=== PATIENT | female | born 1955 | race Caucasian/White ===

== ENCOUNTER → 2016-08-13 | Outpatient (CLI) | payer BC | LOC: WI 15:51 | PROVIDERS: ATTEND Obstetrics & Gynecology Gynecology | DX: Z12.31 Encounter for screening mammogram for malignant neoplasm of breast (principal) | CPT/HCPCS: 77067; G0202 ==

== ENCOUNTER 2016-12-28 19:18 | Emergency (ER) | payer BC ==
--- NOTE | 2016-12-28 20:15 | ER Document Report ---
ED Psych Disorder / Suicide - General Mode of Arrival: Ambulatory - with law enforcement Information source: Patient TRAVEL OUTSIDE OF THE [place] IN LAST 30 DAYS: No <XENIA THOMAS - Last Filed: 12/28/16 21:08> <NALDO ERNANDEZ - Last Filed: 12/28/16 22:44> <ALEX DELUNA - Last Filed: 12/29/16 15:51> - General Chief Complaint: Psych Problem Stated Complaint: IVC WITH PAPER Time Seen by Provider: 12/28/16 19:37 Notes: Patient is a 61-year-old female who presents to the emergency department today with complaints of 4 days of not sleeping. Patient came with IVC paperwork which states that she reported having auditory hallucinations and that she is delusional. She reported suicidal thoughts according to the paperwork. Patient is manic with circumferential and tangential speech. Patient repeats over and over that the problem is that "her does not know how to communicate with her". Patient states "I just need sex so that I could get to sleep". (XENIA THOMAS) - HPI Notes: Patient is unable to engage in evaluation effectively. 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 And discloses many facts and figures in regards to politics, presybeterian, and her expertise. Patient is very difficult to understand and does not answer direct questions. Patient's disclosed this is the first time the patient has demonstrated behavior to this degree. He continued disclosed that she has not slept for more than 2 or 3 hours at a time in weeks. Patient has told family that she can care for herself; however, has made concerning comments on killing the family and herself. Patient is observed demanding [facility] ED staff to assist her because they are her "servants" (i.e. move furniture around, cut her food, and bring her clothing and phone). Patient compiled a list of people she wants as her "patient care team" (family and friends) and to be released home "immediately." Patient is alert and orientated to person, place, time and circumstance. Mood is manic with labile affect. Conversational speech is pressured. Delusions of religiosity and grandiose are present; and behavior is congruent with acute psychosis (i.e. tangential thought process, mixed delusions). 298.9 (F29) unspecified psychotic disorder Impression\\plan: Patient is recommended to continue under IVC. Patient is currently demonstrating delusions of religiosity and grandiose and behaviors are congruent with acute psychosis (i.e. tangential thought process, mixed delusions). Dr. Tripp was consulted and the care and management of this patient; attending physician is in agreement with recommendations and disposition. (ALEX DELUNA) Past Medical History - General Information source: Patient - Social History Smoking Status: Never Smoker Cigarette use (# per day): No Frequency of alcohol use: None Drug Abuse: None Lives with: Family Family History: Reviewed & Not Pertinent Patient has suicidal ideation: No Patient has homicidal ideation: No - Medical History Medical History: Negative Surgical Hx: Negative <XENIA THOMAS - Last Filed: 12/28/16 21:08> Review of Systems - Review of Systems Constitutional: No symptoms reported EENT: No symptoms reported Cardiovascular: No symptoms reported Respiratory: No symptoms reported Gastrointestinal: No symptoms reported Genitourinary: No symptoms reported Female Genitourinary: No symptoms reported Musculoskeletal: No symptoms reported Skin: No symptoms reported Hematologic/Lymphatic: No symptoms reported Neurological/Psychological: See HPI, Other - Manic, admits to lack of sleep for several days -: Yes All other systems reviewed and negative <XENIA THOMAS - Last Filed: 12/28/16 21:08> Physical Exam <XENIA THOMAS - Last Filed: 12/28/16 21:08> <NALDO ERNANDEZ - Last Filed: 12/28/16 22:44> <ALEX DELUNA - Last Filed: 12/29/16 15:51> - Vital signs Vitals: Temp Pulse BP Pulse Ox 99.6 F 90 149/83 H 100 12/28/16 19:33 12/28/16 19:33 12/28/16 19:33 12/28/16 19:33 - Notes Notes: Physical Exam: General: Alert. Appears manic. HEENT: Normocephalic. Atraumatic. PERRL. Extraocular movements intact. Oropharynx clear. Neck: Supple. Non-tender. Respiratory: No respiratory distress. Clear and equal breath sounds bilaterally. Cardiovascular: Regular rate and rhythm. Abdominal: Normal Inspection. Non-tender. No distension. Normal Bowel Sounds. Back: Non-tender. No deformity or step off. Extremities: Moves all four extremities. Upper extremities: Normal inspection. Normal ROM. Lower extremities: Normal inspection. No edema. Normal ROM. Neurological: Normal cognition. AAOx4. Psychological: Manic. Circumferential speech. Tangential speech. Pressured speech. Skin: Warm. Dry. Normal color. (XENIA THOMAS) Course <XENIA THOMAS - Last Filed: 12/28/16 21:08> <NALDO ERNANDEZ - Last Filed: 12/28/16 22:44> - Laboratory Result Diagrams: 12/28/16 22:55 12/28/16 22:55 <ALEX DELUNA - Last Filed: 12/29/16 15:51> - Re-evaluation Re-evalutation: 12/28/16 Patient is a 61-year-old female was brought in on involuntary commitment paperwork. Patient apparently destroyed the house at home. Patient also apparently was suicidal and threatening her . Patient has pressured speech, she is tangential and circumferential. Patient appears to be acutely manic. Patient has been given Geodon, Benadryl, and Zyprexa for her symptoms. Patient is finally resting. Otherwise medically stable. She will be continued on involuntary commitment and held for mental health evaluation in the morning. (NALDO ERNANDEZ) - Vital Signs Vital signs: Temp Pulse Resp BP Pulse Ox 97.2 F 70 16 116/68 96 12/29/16 08:00 12/29/16 08:00 12/29/16 08:00 12/29/16 08:00 12/29/16 08:00 - Laboratory Laboratory results interpreted by me: 12/28/16 12/28/16 20:52 22:55 Urine Blood MODERATE H Ur Leukocyte Esterase MODERATE H Salicylates < 1.0 L Acetaminophen < 10 L Discharge <XENIA THOMAS - Last Filed: 12/28/16 21:08> <NALDO ERNANDEZ - Last Filed: 12/28/16 22:44> <ALEX DELUNA - Last Filed: 12/29/16 15:51> - Discharge Clinical Impression: Lilliana Condition: Stable Disposition: PSYCH HOSP/UNIT Scribe Documentation - Scribe Written by Scribe:: Verena Gomez, 12/28/2016 2124 acting as scribe for :: Nikos <XENIA THOMAS - Last Filed: 12/28/16 21:08>
[2016-12-28] MEDS ORDERED: ZIPRASIDONE MESYLATE INJ/PF 20 MG SDV IM ONE (20:26)
[2016-12-28] MEDS ORDERED: DIPHENHYDRAMINE HCL 50 MG/ML VIAL IM ONE (21:45)
[2016-12-28 21:48] LABS: APPEARANCE,URINE SLIGHTLY-CLOUDY; BILIRUBIN,URINE NEGATIVE (NEGATIVE); GLUCOSE, URINE NEGATIVE (NEGATIVE); KETONES,URINE NEGATIVE (NEGATIVE); LEUKOCYTE ESTERASE,URINE MODERATE (NEGATIVE); NITRITE,URINE NEGATIVE (NEGATIVE); PROTEIN,URINE NEGATIVE (NEGATIVE); URINE SPECIFIC GRAVITY 1.003; UROBILINOGEN,URINE NEGATIVE mg/dL (<2.0)
[2016-12-28] MEDS ORDERED: DIPHENHYDRAMINE HCL 50 MG/ML VIAL ONE (21:49)
[2016-12-28] MEDS ORDERED: FLUTICASONE NASAL SPRAY 50 MCG/SPRY 120 SPRAY/16 GM NASL ONE (21:53)
[2016-12-28 22:04] LABS: URINE BARBITURATES SCREEN NEGATIVE; URINE METHADONE SCREEN NEGATIVE; URINE OPIATES LOW NEGATIVE; URINE PHENCYCLIDINE SCREEN NEGATIVE
[2016-12-28] MEDS ORDERED: OLANZAPINE 5 MG TAB.RAPDIS PO ONE (22:19)
[2016-12-28 23:03] LABS: ABSOLUTE LYMPHOCYTES (AUTO) 2.2 10^3/uL (0.5-4.7); ABSOLUTE MONOCYTES (AUTO) 0.6 10^3/uL (0.1-1.4); ABSOLUTE NEUT (AUTO) 6.7 10^3/uL (1.7-8.2); BASOPHILS % (AUTO) 0.3 % (0-2); EOSINOPHILS % (AUTO) 0.4 % (0-6); HEMOGLOBIN 13.1 g/dL (12.0-15.5); HGB HCT DIFFERENCE 1.3; LYMPHOCYTES % (AUTO) 22.8 % (13-45); MEAN CORPUSCULAR HEMOGLOBIN 32.2 pg (27.0-33.4); MEAN CORPUSCULAR HGB CONC 34.5 g/dL (32.0-36.0); MEAN CORPUSCULAR VOLUME 93 fl (80-97); MONOCYTES % (AUTO) 6.7 % (3-13); RED BLOOD COUNT 4.07 10^6/uL (3.72-5.28); RED CELL DISTRIBUTION WIDTH 13.2 % (11.5-14.0); SEGMENTED NEUTROPHILS % (AUTO) 69.8 % (42-78); WHITE BLOOD COUNT 9.6 10^3/uL (4.0-10.5)
[2016-12-28 23:19] LABS: ALANINE AMINOTRANSFERASE 32 U/L (9-52); ALBUMIN 4.1 g/dL (3.5-5.0); ALKALINE PHOSPHATASE 65 U/L (38-126); ANION GAP 11 (5-19); ASPARTATE AMINO TRANSFERASE 30 U/L (14-36); BILIRUBIN,DIRECT 0.3 mg/dL (0.0-0.4); BILIRUBIN,TOTAL 0.8 mg/dL (0.2-1.3); BLOOD UREA NITROGEN 14 mg/dL (7-20); CALCIUM 9.5 mg/dL (8.4-10.2); CARBON DIOXIDE 27 mmol/L (22-30); CHLORIDE 102 mmol/L (98-107); CREATININE RESULT 0.68 mg/dL (0.52-1.25); GLUCOSE 103 mg/dL (75-110); POTASSIUM 3.7 mmol/L (3.6-5.0); SODIUM 139.6 mmol/L (137-145); TOTAL PROTEIN 7.2 g/dL (6.3-8.2)
[2016-12-28 23:35] LABS: ALCOHOL < 10 mg/dL (NONE DETECTED)
[2016-12-29] MEDS ORDERED: BENZTROPINE MESYLATE INJ 2 MG/2 ML AMPULE IM PRN (11:46)
[2016-12-29] MEDS ORDERED: OLANZAPINE INJ/PF 10 MG SDV IM ONE (11:46)
[2016-12-29] MEDS ORDERED: DIVALPROEX SODIUM 500 MG TAB.SR.24H PO SCH ×2 (12:00→22:00)
--- NOTE | 2016-12-29 12:11 | ER Document Report ---
Doctor's Note Notes: 12/29/16 12:10 Chart was reviewed including initial providers notes, labs and vital signs, patient was seen and evaluated at bedside, she remains quite manic and tangential, basically discussed multiple topics while it was in the room for approximately 5 minutes, her speech rattle done and it was difficult for me to get a word in edge iraheta, intramuscular medications have been ordered, mental health team has evaluated patient and is recommending continued IVC for likely mental health hospitalization placement
[2016-12-29] MEDS ORDERED: DIVALPROEX SODIUM 500 MG TAB.SR.24H PO ONE (13:00)
[2016-12-29] MEDS ORDERED: CHLORPROMAZINE HCL INJ 25 MG/1 ML AMPULE IM ONE (15:07)
[2016-12-29 16:59] VITALS: BP 128/64
[2016-12-29] MEDS ORDERED: OLANZAPINE 5 MG TABLET PO SCH (18:00)
[2016-12-30] MEDS ORDERED: BENZTROPINE MESYLATE 1 MG TABLET PO SCH (10:00)
== END 2016-12-29 17:35 ==
LOC: ER 19:18
DX: F99 Mental disorder, not otherwise specified (principal); F30.9 Manic episode, unspecified; R45.851 Suicidal ideations
CPT/HCPCS: 99285; 96372; 36415; 80307 ×4; 85025; 80053; 81001; J0515; J3230; J3490; J1200; J3486

== ENCOUNTER → 2017-02-24 | Outpatient (CLI) | payer BC ==
--- NOTE | 2017-02-24 10:55 | RADIOLOGY REPORT (SQ) ---
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 TECHNIQUE: CT scan of the abdomen and pelvis performed using helical scanning technique with dynamic intravenous contrast injection. Patient drank oral contrast. Images reviewed with lung, soft tissue , and bone windows. Reconstructed coronal and sagittal MPR images reviewed. Delayed images for evalua tion of the urinary system also acquired. All images stored on PACS. All CT scanners at this facility use dose modulation, iterative reconstruction, and/or weight based d osing when appropriate to reduce radiation dose to as low as reasonably achievable (ALARA). [facility]: Dose Right [facility]: CareDose [facility]: Dose Right [facility]: Teradose 4D [facility]: [employer] CONTRAST TYPE AND DOSE: contrast/concentration: Isovue 370.00 mg/ml; Total Contrast Delivered: 84.0 ml; Total Saline Delivered: 69.0 ml RENAL FUNCTION: Creatinine 0.8 RADIATION DOSE: Up-to-date CT equipment and radiation dose reduction techniques were employed. CTDIv ol: 5.8 - 6.9 mGy. DLP: 674 mGy-cm.. LIMITATIONS: None. FINDINGS: LOWER CHEST: No significant findings. No nodules or infiltrates. LIVER: Normal size. No masses. No dilated ducts. Less than 1 cm cyst inferior right lobe liver axia l image 33. SPLEEN: Normal size. No focal lesions. PANCREAS: No masses. No significant calcifications. No adjacent inflammation or peripancreatic fluid collections. Pancreatic duct not dilated. GALLBLADDER: No identified stones by CT criteria. No inflammatory changes to suggest cholecystitis. ADRENAL GLANDS: No significant masses or asymmetry. RIGHT KIDNEY AND URETER: No solid masses. No significant calcifications. No hydronephrosis or hyd roureter. LEFT KIDNEY AND URETER: No solid masses. 1.7 cm left midpole renal cortical cyst. No significant ca lcifications. No hydronephrosis or hydroureter. AORTA AND VESSELS: No aneurysm. No dissection. Renal arteries, SMA, celiac without stenosis. There is persistent nonocclusive clot in the left external iliac vein on axial images 71-79, and leonard nal images 35 through 44. RETROPERITONEUM: No retroperitoneal adenopathy, hemorrhage or masses. BOWEL AND PERITONEAL CAVITY: No masses or inflammatory changes. No free fluid or peritoneal masses. Few descending colon diverticuli without CT evidence of acute diverticulitis. APPENDIX: Normal. PELVIS: No mass. No free fluid. Normal bladder. Post hysterectomy. ABDOMINAL WALL: No masses. No hernias. BONES: No significant or acute findings. OTHER: No other significant finding. IMPRESSION: Persistent nonocclusive clot in the left external iliac vein. Post hysterectomy. Few colonic diverticuli without CT signs of diverticulitis. No gross annular constricting colon mass . TECHNICAL DOCUMENTATION: JOB ID: [id number] Quality ID # [id number]: Final reports with documentation of one or more dose reduction techniques (e.g., Au tomated exposure control, adjustment of the mA and/or kV according to patient size, use of iterative reconstruction technique) 2010 [employer]- All Rights Reserved
== END ==
LOC: RAD 09:36
PROVIDERS: ATTEND Internal Medicine Medical Oncology
DX: I82.409 Acute embolism and thrombosis of unspecified deep veins of unspecified lower extremity (principal); Z15.09 Genetic susceptibility to other malignant neoplasm
CPT/HCPCS: 74177

== ENCOUNTER → 2017-04-18 | Outpatient (CLI) | payer BC ==
--- NOTE | 2017-04-18 13:49 | RADIOLOGY REPORT (SQ) ---
EXAM DESCRIPTION: VENOUS UNILATERAL LOWER COMPLETED DATE/TIME: 04/18/2017 1:16 pm REASON FOR STUDY: LLE ACUTE EMBOLISM OF DEEP VEINS I82.409 I82.409 ACUTE EMBOLISM AND THOMBOS UNSP DEEP VN UNSP LOWER E COMPARISON: None. TECHNIQUE: Dynamic and static faria scale and color images acquired of the left leg venous system. Se lected spectral images acquired with additional compression and augmentation maneuvers. The contralat eral common femoral vein and saphenofemoral junction were also imaged. Images stored on PACS. LIMITATIONS: None. FINDINGS: COMMON FEMORAL: Normal phasicity, compression and augmentation. No visualized echogenic ma terial on faria scale. No defects on color images. FEMORAL: Normal compression and augmentation. No visualized echogenic material on faria scale. No defe cts on color images. POPLITEAL: Normal compression, augmentation. No visualized echogenic material on faria scale. No defec ts on color images. CALF VESSELS: Normal compression, augmentation. No visualized echogenic material on faria scale. No de fects on color images. GSV and SSV: Normal compression, augmentation. No visualized echogenic material on faria scale. No def ects on color images. ANY DEEP VENOUS INSUFFICIENCY: Not evaluated. ANY EVIDENCE OF POPLITEAL CYST: No. OTHER: No other significant finding. CONTRALATERAL COMMON FEMORAL VEIN AND SAPHENOFEMORAL JUNCTION: Normal phasicity, compression and augmentation. No visualized echogenic material on faria scale. No de fects on color images. IMPRESSION: NO EVIDENCE DVT OR SVT IN THE LEFT LEG. TECHNICAL DOCUMENTATION: JOB ID: [id number] [employer]- All Rights Reserved
== END ==
LOC: SP 12:25
PROVIDERS: ATTEND Internal Medicine Medical Oncology
DX: I82.409 Acute embolism and thrombosis of unspecified deep veins of unspecified lower extremity (principal)
CPT/HCPCS: 93971

== ENCOUNTER → 2017-08-15 | Outpatient (CLI) | payer BC ==
--- NOTE | 2017-08-16 16:51 | WOMENS IMAGING REPORT ---
EXAM DESCRIPTION: 3D SCREENING MAMMO BILAT COMPLETED DATE/TIME: 08/15/2017 3:56 pm REASON FOR STUDY: ROUTINE SCREENING;Z12.31 Z12.31 ENCNTR SCREEN MAMMOGRAM FOR MALIGNANT NEOPLASM OF PRANAV COMPARISON: 2012 to 2016 TECHNIQUE: Standard craniocaudal and mediolateral oblique views of each breast recorded using digita l acquisition and breast tomosynthesis. LIMITATIONS: None. FINDINGS: No masses, calcifications or architectural distortion. No areas of suspicion. Read with the assistance of CAD. .[facility] - R2 Cenova Version 1.3 .[facility] Imaging - R2 Cenova Version 1.3 .[facility] Imaging - R2 Cenova Version 2.4 .[facility] - R2 Cenova Version 2.4 .[facility] - R2 [employer] Worker Version 9.2 IMPRESSION: NORMAL MAMMOGRAM. BIRADS 1. BREAST DENSITY: c. The breasts are heterogeneously dense, which may obscure small masses. BIRAD: 1 NEGATIVE RECOMMENDATION: ROUTINE SCREENING COMMENT: The patient has been notified of the results by letter per SA requirements. Additional no tification policies are in place for contacting patient with suspicious or incomplete findings. Quality ID #225: The [employer] recommends an annual screening mammogram for women aged 40 years or over. This facility utilizes a reminder system to ensure that all patients receive reminder letters, and/or direct phone calls for appointments. This includes reminders for routine scr eening mammograms, diagnostic mammograms, or other Breast Imaging Interventions when appropriate. Th is patient will be placed in the appropriate reminder system. The [employer] (ACR) has developed recommendations for screening MRI of the breast s in certain patient populations, to be used in conjunction with mammography. Breast MRI surveillanc e may be appropriate for women with more than 20% lifetime risk of developing breast cancer as deter mined by genetic testing, significant family history of the disease, or history of mantle radiation f or Hodgkins Disease. ACR Practice Guidelines 2008. DBT Technology DBT is a type of tomographic mammography. With conventional mammography, overlapping breast tissue ma y make lesions difficult to detect, even with good compression. DBT uses an x-ray tube that rotates a round the breast, taking images at different angles. These images are then combined to create thin sl ices of the breast that the radiologist can view as a 3D reconstruction. The [employer] unit can perform full-field digital mammograms (2D imaging); or DBT (3D imaging); or both, in a combination mode that quickly performs both the mammogram and the tomosynthesis scan while the breast is still compressed. PQRS 6045F: Fluoroscopic imaging is not utilized for breast tomosynthesis. TECHNICAL DOCUMENTATION: FINDING NUMBER: (1) ASSESSMENT: (1) JOB ID: [id number] [employer]- All Rights Reserved Reading location - IP/workstation name: [email or web address] [id number]
== END ==
LOC: WI 15:40
PROVIDERS: ATTEND Obstetrics & Gynecology Gynecology
DX: Z12.31 Encounter for screening mammogram for malignant neoplasm of breast (principal)
CPT/HCPCS: 77063; 77067

== ENCOUNTER → 2018-08-16 | Outpatient (CLI) | payer BC ==
--- NOTE | 2018-08-16 15:06 | WOMENS IMAGING REPORT ---
EXAM DESCRIPTION: BILAT SCREENING MAMMO W/CAD COMPLETED DATE/TIME: 08/16/2018 2:36 pm REASON FOR STUDY: Z12.31 ROUTINE BILATERAL SCREENING Z12.31 ENCNTR SCREEN MAMMOGRAM FOR MALIGNANT N EOPLASM OF PRANAV COMPARISON: [id number] TECHNIQUE: Standard craniocaudal and mediolateral oblique views of each breast recorded using [employer] l acquisition. LIMITATIONS: None. FINDINGS: No masses, calcifications or architectural distortion. No areas of suspicion. Read with the assistance of CAD. .[facility] - R2 Cenova Version 1.3 .[facility] Imaging - R2 Cenova Version 2.1 .[facility] Imaging - R2 Cenova Version 2.4 .[facility] - R2 Cenova Version 2.4 .[facility] - R2 [employer] Version 9.2 IMPRESSION: NORMAL MAMMOGRAM. BIRADS 1. BREAST DENSITY: b. There are scattered areas of fibroglandular density. BIRAD: 1 NEGATIVE RECOMMENDATION: ROUTINE SCREENING COMMENT: The patient has been notified of the results by letter per SA requirements. Additional no tification policies are in place for contacting patient with suspicious or incomplete findings. Quality ID #[id number]: The [employer] recommends an annual screening mammogram for women aged 40 years or over. This facility utilizes a reminder system to ensure that all patients receive reminder letters, and/or direct phone calls for appointments. This includes reminders for routine scr eening mammograms, diagnostic mammograms, or other Breast Imaging Interventions when appropriate. Th is patient will be placed in the appropriate reminder system. The [employer] (ACR) has developed recommendations for screening MRI of the breast s in certain patient populations, to be used in conjunction with mammography. Breast MRI surveillanc e may be appropriate for women with more than 20% lifetime risk of developing breast cancer as deter mined by genetic testing, significant family history of the disease, or history of mantle radiation f or Hodgkins Disease. ACR Practice Guidelines 2008. TECHNICAL DOCUMENTATION: FINDING NUMBER: (1) ASSESSMENT: (1) JOB ID: [id number] [employer]- All Rights Reserved Reading location - IP/workstation name: [email or web address]
== END ==
LOC: WI 14:17
PROVIDERS: ATTEND Obstetrics & Gynecology Gynecology
DX: Z12.31 Encounter for screening mammogram for malignant neoplasm of breast (principal)
CPT/HCPCS: 77067